=== PATIENT | male | born 1950 ===

== ENCOUNTER → 2018-03-05 17:01 | Outpatient (CLI) | payer OTHER | END | disposition home or self-care (01) | LOC: LAB 17:01 | DX: R97.20 Elevated prostate specific antigen [PSA] (principal) ==

== ENCOUNTER 2018-04-23 07:07 | Outpatient (CLI) | payer OTHER | END 2018-04-23 07:27 | disposition home or self-care (01) | LOC: SONOGRAMA 07:07 | DX: R97.20 Elevated prostate specific antigen [PSA] (principal) ==

== ENCOUNTER → 2020-02-01 12:37 | Outpatient (CLI) | payer OTHER | END | disposition home or self-care (01) | LOC: LAB 12:37 | DX: R97.20 Elevated prostate specific antigen [PSA] (principal) ==

== ENCOUNTER 2020-02-10 07:26 | Outpatient (CLI) | payer OTHER | END 2020-02-10 07:37 | disposition home or self-care (01) | LOC: SONOGRAMA 07:26 | DX: R97.20 Elevated prostate specific antigen [PSA] (principal) ==

== ENCOUNTER 2021-07-24 10:55 | Outpatient (CLI) | payer OTHER | END 2021-07-24 10:58 | disposition home or self-care (01) | LOC: LAB 10:55 | PROVIDERS: ATTEND Urology | DX: R97.20 Elevated prostate specific antigen [PSA] (principal) ==

== ENCOUNTER 2021-09-20 07:16 | Outpatient (CLI) | payer OTHER | END 2021-09-20 07:33 | disposition home or self-care (01) | LOC: SONOGRAMA 07:16 | PROVIDERS: ATTEND Urology | DX: C61 Malignant neoplasm of prostate (principal); D29.1 Benign neoplasm of prostate; R97.20 Elevated prostate specific antigen [PSA] ==